=== PATIENT | male | born 2005 | race Caucasian/White ===

== ENCOUNTER → 2024-10-20 01:44 | Day surgery (SDC) | payer BC, SELFPAY ==
[2024-10-19 23:30] VITALS: BMI 25.9
[2024-10-19 23:32] VITALS: BP 166/90
[2024-10-20] VITALS (7 sets, daily range): BP systolic 110–166; BP diastolic 51–90
--- NOTE | 2024-10-20 00:04 | ED.GENMED ---
History of Present Illness
General
Chief Complaint: Swallowing Problem
Source: patient and family
Exam Limitations: none
Time Seen by Provider: 10/19/24 23:47
Nursing documentation reviewed up to this point in time: agreed with
History of Present Illness
History of Present Illness:
19-year-old male presents emergency department due to hotdog being stuck in his esophagus. States he has had this happen before in the past, but never had to come to the hospital for it. He tried drinking water and it did not help. He is not
tolerating his secretions.
Past History
Past History
ED Past Medical History: None
ED Past Surgical History: None
Social History
Tobacco: Non-smoker
Alcohol: None
Drug: None
Personal: Single
Living: with family
Review of Systems
Review of Systems
Allergies reviewed?: Yes
All Other Systems: Not applicable
Constitutional: Reports no symptoms
EENT: Reports no symptoms
Respiratory: Reports no symptoms
Cardiac: Reports no symptoms
ABD/GI: Reports vomiting
: Reports no symptoms
Musculoskeletal: Reports no symptoms
Skin: Reports no symptoms
Neurological: Reports no symptoms
Endocrine: Reports no symptoms
Hematologic/Lymphatic: Reports no symptoms
Psychiatric: Reports no symptoms
Phy Exam
Physical Exam
Physical Exam:
Physical Exam
General: Appears uncomfortable
Neck: supple. no meningeal signs. normal posterior pharynx
Heart: equal radial pulses.
HEENT: Pupils equal round reactive to light, EOMI
Lungs: no acute respiratory distress.
Abdomen: normal bowel sounds. not tender. no CVAT
Neuro: alert and oriented. no focal neurological
Skin: no rash
Psychiatric: well kept. interactive and cooperative
Extremities: no edema. good distal pulses
Course
Orders/Labs/Results
Orders:
Orders
10/19/24 23:47
IV Insert/Care/Rem.- Treatment PRN
Glucagon [GlucaGen] 1 mg IV NOW STA
10/20/24 00:19
Glucagon [GlucaGen] 1 mg IV NOW STA
10/20/24 00:41
Dexamethasone Sod Phosphate [Decadron] 20 mg .ROUTE .STK-MED ONE
Lidocaine HCl/Pf [Xylocaine-Mpf 1% Vial] 50 mg .ROUTE .STK-MED ONE
Sugammadex Sodium [Bridion] 200 mg .ROUTE .STK-MED ONE
10/20/24 00:42
Midazolam HCl [Versed] 2 mg .ROUTE .STK-MED ONE
Ondansetron Injectable [Zofran] 4 mg .ROUTE .STK-MED ONE
Propofol [Diprivan] 40 ml .ROUTE .STK-MED
Rocuronium [place] [Rocuronium] 100 mg .ROUTE .STK-MED ONE
Succinylcholine Chloride [Succinylcholine] 200 mg .ROUTE .STK-MED ONE
10/20/24 00:43
Phenylephrine HCl/0.9% NaCl [Peter-Synephrine] 1,000 mcg .ROUTE .STK-MED ONE
Vital Signs
Initial and Last Documented VS:
Initial Vital Signs
Temp Pulse Resp BP Pulse Ox
98.7 F 56 18 166/90 96
10/19/24 23:32 10/19/24 23:32 10/19/24 23:32 10/19/24 23:32 10/19/24 23:32
Last Documented Vital Signs
Temp Pulse Resp BP Pulse Ox
97.6 F 62 14 121/62 96
10/20/24 02:10 10/20/24 02:15 10/20/24 02:15 10/20/24 02:15 10/20/24 02:15
MDM/Problems Addressed
Differential Diagnosis Includes:
Impacted food bolus
MDM/Problems Addressed:
19-year-old male with esophageal food bolus. Taken to GI lab for endoscopy
*Pulse Oximetry
Patient hypoxic: no
*Critical Care Note
Total Time (30-74mins, 75-104mins- exclusive of procedures): Not Applicable
Patient Management
Social determinants of health affecting care: Living situation and Strong social support
Discussion with other providers: Public Relations Officer (Gastroenterology)
ED Attending Note
-
Portions of this chart may have been created with voice recognition software.� Occasional wrong word or��sound alike� substitutions may have occurred due to the inherent limitations of voice recognition software.
Discharge Plan
Departure
Patient Disposition: GI LAB
Date of Disposition: 10/20/24
Time of Disposition: 00:27
Admit to: GI lab
Presentation/result/management discussed w/ accepting MD/DO: Dr. Paulino Galdamez
Patient with high blood pressure during this ER visit?: Yes
Condition: Good
Discharge Problem:
Food impaction of esophagus
Interventions
Interventions:
*Risk Screen - Suicide Last Done: 10/19/24 23:32
*General Assessment Last Done: 10/19/24 23:47
*Neglect/Abuse Screening Last Done: 10/19/24 23:32
*ED- Fall Risk Assessment Last Done: 10/19/24 23:47
*ED COVID-19 Vaccine History Last Done: 10/19/24 23:47
*Nursing Disposition Last Done: 10/20/24 01:13
ED-EENT Assessment Last Done: 10/19/24 23:49
RZ-Kahbpk-Spxtpxkiji Assessment Last Done: 10/19/24 23:49
ED- Pulmonary Assessment Last Done: 10/19/24 23:49
ED- Neurological Assessment Last Done: 10/19/24 23:49
Discharge Date and Time
Discharge Date/Time: 10/20/24 01:13
[2024-10-20] MEDS: GlucaGen 1 MG IV ×2 (00:12→00:31)
--- NOTE | 2024-10-20 00:53 | CON.GI ---
Consultation
-
Date/Time Consultation Requested: 10/20/24 12:04am
Date/Time Consultation Performed: 10/20/24 12:54am
Requesting Provider: Rafa Campo
Performing Provider: Paulino Galdamez
Reason for Consultation: food impaction
Medical History
Chief Complaint / HPI
Chief Complaint: food impaction
History of Present Illness:
19yo male presents after eating a hot dog at 7pm that did not pass. He has had prior episodes of dysphagia, but typically would swallow it down with water or retch it up. This was the most severe incident. Denies heartburn.
Past Medical History
Past Medical History: None
Past Surgical History: Orthopedic (R labrum surgery)
Social History
Tobacco: Non-Smoker
Alcohol: Occasional
Family History
Family History: Reviewed & Not Pertinent
Allergies / Home Medications
Allergy/AdvReac Type Severity Reaction Status Date / Time
tree nut Allergy Swelling Verified 10/19/24 23:35
NKA - No Known Allergies Allergy Unknown Uncoded 04/25/14 14:46
Review of Systems
-
All other systems: A 12 pt ROS was Negative except as stated above in HPI
Vital Signs
Temp Pulse Resp BP Pulse Ox
98.7 F 56 18 166/90 97
10/19/24 23:32 10/19/24 23:32 10/19/24 23:32 10/19/24 23:32 10/19/24 23:49
Physical Exam
Exam
General: Well Developed, Well Nourished and Other (uncomfortable. spitting into emesis bag)
HEENT: Normocephalic and Atraumatic
Respiratory: Non Labored Respirations
GI: Soft, Non Tender and Non Distended
Skin: Warm and Dry
Results
Diagnostic Image Results:
Prior GI Procedures:
EGD:
Colonoscopy:
Assessment / Plan
-
Impression:
Food impaction
Recommendation:
EGD to remove food impaction
Will plan on bx esophagus r/o eosinophilic esophagitis
-
-
Thank you for consultation and allowing me to participate in the patient's care. Please call the nutrition aides teacher GI physician during the after hours with any questions or concerns.
== END ==
LOC: EMR 10-19 23:29 → PACU 01:44
PROVIDERS: ATTENDING PHYSICIAN Specialist; EMERGENCY PHYSICIAN Emergency Medicine; FAMILY PHYSICIAN Registered Nurse
DX: T18.128A Food in esophagus causing other injury, initial encounter (principal); W44.F3XA Food entering into or through a natural orifice, initial encounter; K20.0 Eosinophilic esophagitis; K22.89 Other specified disease of esophagus
CPT/HCPCS: 43247; 43239; 88305; 99285; J1610